=== PATIENT | female | born 1955 | race African-American/Black ===

== ENCOUNTER 2022-01-15 08:20 | Emergency (ER) | payer BC, MEDICAID ==
[~2022-01-15] VITALS: Ht 165.1 cm; Wt 46.0 kg
[2022-01-15] MEDS ORDERED: MORPHINE SULFATE 4 MG/ML CPJ (NOT FOR IM USE) IV ONE (11:45)
[2022-01-15 12:22] LABS: HEMATOCRIT. 34.7 % (36.0-48.0); HEMOGLOBIN. 11.6 g/dL (12.0-16.0); MEAN CORPUSCULAR HEMOGLOBIN 27.5 pg (28.0-32.0); MEAN CORPUSCULAR VOLUME 82.7 fL (81.0-99.0); MEAN PLATELET VOLUME 7.8 fl (7.4-10.4); PLATELET 260 x1000/uL (130-400)
[2022-01-15 12:30] LABS: CHLORIDE 100 mEq/L (98-107)
[2022-01-15 12:39] LABS: CREATINE KINASE 337 IU/L (26-192)
[2022-01-15 13:16] LABS: PLATELET ESTIMATE NORMAL
[2022-01-15 13:38] VITALS: BP 122/74
== END 2022-01-15 15:26 | disposition home or self-care (01) ==
LOC: ER 08:20
DX: M79.18 Myalgia, other site (principal); E78.00 Pure hypercholesterolemia, unspecified; I10 Essential (primary) hypertension
CPT/HCPCS: 36415; 70450; 71045; 72125; 72170; 80053; 82550; 85025; 96374; 99285; J2270